=== PATIENT | female | born 1935 | race Caucasian/White ===

== ENCOUNTER 2019-02-20 14:36 | Inpatient (IN) | payer OTHER ==
[~2019-02-20] VITALS: Ht 165.1 cm; Wt 61.9 kg
[2019-02-20 14:37] VITALS: BP 108/64
--- NOTE | 2019-02-20 14:43 | NUR ---
NURSE VILLA FROM [facility] CONTACTED AND REPORTS WILL SEND MED LIST VIA FAX
[2019-02-20 15:21] LABS: URINE BLOOD NEGATIVE (Negative); URINE CLARITY CLEAR; URINE COLOR YELLOW; URINE GLUCOSE-RANDOM* NEGATIVE (Negative); URINE KETONES 1+ (Negative); URINE LEUKOCYTES-REFLEX NEGATIVE (Negative); URINE NITRITE-REFLEX NEGATIVE (Negative); URINE PROTEIN (DIPSTICK) TRACE (Negative); URINE SPECIFIC GRAVITY 1.025 (1.005-1.035)
[2019-02-20 15:24] LABS: ICTOTEST (BILI CONFIRMATORY) Negative (Negative); URINE BILIRUBIN NEGATIVE (Negative)
[2019-02-20 15:28] LABS: HEMATOCRIT 40.3 % (37.0-47.0)
[2019-02-20 15:30] LABS: HEMOGLOBIN 13.5 gm/dL (12.0-15.0); LYMPHOCYTES 43.9 % (24.0-44.0); MCH 31.8 pg (26.0-34.0); MCHC 33.4 g/dL (28.0-37.0); MCV 95.2 fL (80.0-100.0); POLYS 44.1 % (36.0-66.0); RBC 4.24 mil/uL (4.20-5.00); RDW 14.1 % (10.5-14.5); WBC 3.6 thou/uL (4.0-11.0)
[2019-02-20 15:38] LABS: CALCIUM 9.2 mg/dL (8.5-10.1); POTASSIUM 3.4 mmol/L (3.5-5.1)
[2019-02-20 15:44] LABS: ALBUMIN 3.3 g/dL (3.4-5.0); TOTAL BILIRUBIN 0.6 mg/dL (<0.1-1.0); TOTAL PROTEIN 6.4 g/dL (6.4-8.2)
[2019-02-20 15:52] LABS: PLATELET COUNT 48 thou/uL (150-400); PLATELET ESTIMATE DECREASED
[2019-02-20 16:57] VITALS: BP 121/69
[2019-02-20 16:59] VITALS: BP 121/69
--- NOTE | 2019-02-20 17:02 | NUR ---
ARRIVES TO FLOOR VIA CART FROM ER AN 81 YEAR OLD FEMALE FROM [facility]-PT REPORTED BY SENIOR LIVING STAFF TO BE PHYSICALLY AGGRESSIVE STRIKING FAMILY AND STAFF MEMBERS ATTEMPTING TO HELP HER-IS ALSO REPORTED TO BE DELUSIONAL/PARANOID WITH RECENT STATEMENTS ABOUT PEOPLE BEING OUT TO GET HER AND AGAINST HER RECENTLY. REPORTED BY ER STAFF TO HAVE BEEN EXTREMLY COMBATIVE THROUGHOUT AMBULANCE DRIVE ON WAY IN AND DURING ER STAY-BITTING,KICKING AND HITTING ER STAFF-RECEIVED IM GEODON X 2 IN ER PRIOR TO ARRIVAL TO UNIT. IS NOTED TO BE SOMULENT-UNABLE TO ANSWER QUESTIONS DURING ADMIT INTERVIEW-FEEBLY STRUCK OUT WITH ATTEMPTS TO GET ADMIT VS-NO SKIN BREAKDOWN NOTED-WEARING BRIEF WHICH IS DRY. THIS RN CONTACTED SON JOSEPH WHO IS DPOA AND CONSENTS OBTAINED. VS 121/69 P-70 02 SAT 98 PERCENT TEMP 97.7
--- NOTE | 2019-02-20 23:13 | NUR ---
1909-Report received from day shift nurse and care assumed. She tried to hit staff taking her VS due to fear, but was consoled and compliant. VSS. She talked with yuni jimenez when talked with margarita, and became less scared with time. She was taken her medications scheduled and talked with, she did say No, several times, shaking her head slightly and pulling away. She was asked about if she was sleepy still and wanted to go back to sleep and she said Yes. She was comforted and covered up with sheets/blankets and has went to sleep and has continued sleeping with bed alarm activated.
--- NOTE | 2019-02-21 05:59 | NUR ---
The pt. set off the alarm in the middle of the night and needed to go to the bathroom. This morning she was taken to the toilet again and she grabbed and kicked staff helping her and talking in a word salad. She was talked with and oriented to the situation but she still wanted to hit hard staff helping her, talking with word mixes non-understandable mostly but also understood some words such as "don't hurt me" and yelling "I'm going to tell my Daddy". Then later "I'm going to tell your Daddy". She was reoriented to the situation, and she wanted to return to sleep/rest in her bed at this time. She continues on fall precautions with bed alarm and other measures.
[2019-02-21 09:16] VITALS: BP 150/89
--- NOTE | 2019-02-21 18:23 | NUR ---
CONFUSED. MUMBLEY SPEECH AND WORD SALAD. SLOW STEADY GAIT. POOR APPETITE. HAS NOT SHOWN AGGRESSIVE BEHAVIOR TODAY. TOOK MEDICATIONS CRUSHED IN ICE CREAM.
[2019-02-21 19:36] VITALS: BP 100/80
--- NOTE | 2019-02-21 21:19 | NUR ---
ASSUMED CARE OF THE PT AT 191 PM. ALERT ET ORIENTED X 1-2. THE PT REMAINS CONFUSED AT TIMES. SHE TOOK HER HS MEDICATION AFTER SHE WENT TO BED. HEART RATE REGULAR. LUNGS CLEAR BILATERALLY, RESP., EVEN, AND UNLABORED. +BS HEARD IN ALL 4 QUADRANTS. ABD SOFT ET NONTENDOR. UNABLE TO SEE IF SHE IS HAVING ANXIETY OR DEPRESSION. REMAINS ON 12 MINUTE CHECKS.
[2019-02-22 09:37] VITALS: BP 109/63
--- NOTE | 2019-02-22 09:48 | NUR ---
[id number]: Report rec from noc shift, care assumed. Assisted by staff x3 to dress and ambulate to DR, uses walker reluctantly, resistant to staff assist, attempts to slap and pinch staff, pt has to be firmly re-directed repeatedly to stay on task (ambulating, focus of task). Sitting at DR table, feeds self a.m. meal, appetite fair, resistant to taking po meds. Attended 0900 therapy group, no participation noted. Call rec from family, update given. 1030: Ambulating in DR, refuses to use walker, close observation and q 12 min checks continue.
[2019-02-22 19:30] VITALS: BP 127/76
[2019-02-22 20:08] LABS: HEMATOCRIT 37.6 % (37.0-47.0); HEMOGLOBIN 12.8 gm/dL (12.0-15.0); MCH 32.4 pg (26.0-34.0); MCHC 34.1 g/dL (28.0-37.0); MCV 95.1 fL (80.0-100.0); RBC 3.96 mil/uL (4.20-5.00); RDW 13.9 % (10.5-14.5); WBC 4.5 thou/uL (4.0-11.0)
[2019-02-22 20:14] LABS: CALCIUM 9.4 mg/dL (8.5-10.1); CREATININE 1.2 mg/dL (0.6-1.0); POTASSIUM 3.4 mmol/L (3.5-5.1)
--- NOTE | 2019-02-22 22:34 | NUR ---
ASSUMED CARE OF THE PT AT 191 PM. ALERT ET ORIENTED X 2. WALKS WITH A STEADY GAIT. REFUSES TO USE A WALKER, SHE MOVES IT IN THE WRONG DIRECTION. THE PT WAS PUT TO BED, SHE STAYED FOR A FEW MINUTES, THEN SHE GOT UP AGAIN, THE PT TOOK HER MEDICATION CRUSHED IN APPLESAUCE. THE PT IS NOW LYING ON ONE OF THE COUCHES IN THE DAYROOM SLEEPING. HEART RATE REGULAR, LUNGS CLEAR BILATERALLY, RESP., EVEN, AND UNLABORED. +BS HEARD IN ALL 4 QUADRANTS. ABD SLIGHTLY OBESE. REMAINS ON 12 MINUTE CHECKS FOR THE PT'S SAFETY.
--- NOTE | 2019-02-23 01:29 | NUR ---
THE PT WAS ATTEMPTING TO ELOPE, BY YANKING AT ALL OF THE DOORS, ATTEMPTING TO GO INTO OTHER PT'S ROOMS. THIS LINUX DEVELOPER CALLED THE PHYSICIAN DESULFURIZER HAND WHO ORDERED FOR THE PT TO RECEIVE ATIVAN 1 MG IM X 1, WHICH WAS GIVEN ORDERED. THE PT IS NOW SITTING IN THE DAYROOM AT THIS TIME WITH STAFF KEEPING AN EYE ON HER, REMAINS ON 12 MINUTE CHECKS FOR THE PT'S SAFETY.
--- NOTE | 2019-02-23 05:22 | NUR ---
ASSISTED THE PT BACK TO BED ABOUT 4 PM., THE PT WENT TO SLEEP ALMOST AT THE SAME TIME. REMAINS ON 12 MINUTE CHECKS FOR HER SAFETY.
[2019-02-23 09:38] VITALS: BP 116/86
--- NOTE | 2019-02-23 13:58 | NUR ---
0715: Report rec from [facility] shift, care assumed. [id number]: To via w/c, lethargic, sluggish to arouse to verbal and tactile stimuli, skin w/d, color natural pale. Staff feeds pt, appetite poor due to lethargy, a.m. med given, pt spit med out, natural tears eye gtts given. No participation in 0900 therapy group session. 1130: Less lethargic for noon meal, fed by staff, appetite fair.
[2019-02-23 19:57] VITALS: BP 125/59
--- NOTE | 2019-02-24 00:22 | NUR ---
PATIENT SITTING AT A TABLE IN DINING ROOM WHEN I CAME ON FLOOR TONITE AT 1900. SHE APPEARED GROGGY FROM SEDATION AND COULD NOT EVEN TALK VERY LOUD. SHE HAD ATIVAN 1MG IM EARLY AM YESTERDAY. PATIENT TOOK HER MEDS CRUSHED IN ICECREAM AND WAS IN BED BY 2100. SHE DENIES PAIN. SHE IS A/0 X1. COMPLIANT. NO BEHAVIORS TONITE. BED IN LOW POSITION AND BED ALARM ON. ROUTINE ROUNDS BEING DONE TO MONITOR HER STATUS.
[2019-02-24 02:09] VITALS: BP 125/59
[2019-02-24 15:18] VITALS: BP 125/59
--- NOTE | 2019-02-24 15:30 | NUR ---
ASSUMED CARE AT 0700 THIS MORNING. PT. ON THE UNIT, SITTING IN A CHAIR READY FOR BREAKFAST. HER 0900 MEDICATIONS WERE CRUSHED AND PLACED IN ICE CREAM. PT. RELUNCTANT TO TAKE THE ICE CREAM BUT FINALLY DID. ATTENDED MORNING MEETING BUT NO PARTICIPATION NOTED. ATE ON THE UNIT. NO S/S SI/HI OR AVH NOTED. SHE REMAINS COMBATIVE WHEN STAFF ATTEMPTS TO AMBULATE HER AND WORK WITH HER.
[2019-02-24 20:46] VITALS: BP 89/62
--- NOTE | 2019-02-25 02:25 | NUR ---
1909-Report received from day shift nurse and care assumed. Lisa was sitting in the day room around others, in a wheelchair. She moved the chair around at times slowly. She talked in word salad when assessed, using several words trying to communicate. No words voiced made any sense though. Meds. were crushed and put in ice cream which is her preference, she was compliant but notably distasteful somewhat per her facial expression but water was given and just ice cream. She rambled words the entire time assessing her and was not hostile or aggressive. . She was not aggressive with ADL's per other staff as well, when she was placed to bed for the night. No c.o. pain voiced.
[2019-02-25 05:27] LABS: HEMATOCRIT 37.3 % (37.0-47.0); HEMOGLOBIN 12.6 gm/dL (12.0-15.0); MCHC 33.7 g/dL (28.0-37.0); PLATELET COUNT 148 thou/uL (150-400); RBC 3.93 mil/uL (4.20-5.00); RDW 14.2 % (10.5-14.5)
[2019-02-25 05:47] LABS: CALCIUM 8.9 mg/dL (8.5-10.1); POTASSIUM 4.2 mmol/L (3.5-5.1)
[2019-02-25 08:56] VITALS: BP 117/73
[2019-02-25 09:01] LABS: ABSOLUTE NEUTROPHILS 2.1 thou/uL (1.4-8.2); PLATELET ESTIMATE NORMAL
[2019-02-25 11:17] VITALS: BP 117/73
--- NOTE | 2019-02-25 12:21 | NUR ---
ASSUMED CARE AT 0700 THIS MORNING. PT. AWAKE, ALERT AND ON THE UNIT IN A W/C. SHE IS LESS COMBATIVE TODAY THAN YESTERDAY. WHEN MORNING MEDICATIONS WERE GIVEN TO HER SHE ATE THEM, ALTHOUGHT SHE NOTED THE APPLESAUCE DID NOT TASTE LIKE IT SHOULD. MEDS WERE CRUSHED AND PUT IN APPLESAUCE. SHE IS MORE LUCID IN HER TALKING TODAY. SHE IS NOTED TO BE SMILING SOME TODAY. FAMILY HERE AT 1100 FOR FAMILY MEETING. THEY WERE PLEASED ON HER LUCID VERBALIZATIONS AND HER SMILING. THEY MET WITH DR. NEGRON TO DISCUSS PT.'S CARE AND/OR PLACEMENT. FAMILY STATED THAT THE DETENTION WOULD GIVE UP ON HER TRYING TO TAKE HER MEDICATION IF SHE REFUSED THEM. THEY WOULD NOT CRUSH THEM OR PUT THEM IN APPLESAUCE. "THEY JUST GAVE UP TRYING TO GIVE THE MEDS TO HER". SHE WAS ON THE UNIT FOR GROUP THIS MORNING. NO SI/HI NOTED AND NOT AVH VOICED OR NOTED. HAS NOT BEEN STRIKING OUT AT STAFF THIS MORNING.
[2019-02-25 19:52] VITALS: BP 101/79
--- NOTE | 2019-02-26 04:42 | NUR ---
ASSUMED CARE OF PATIENT AT APPROXIMATELY 1915 ON 02/25/19. THROUGHOUT THE EVENING SHE REMAINED IN BED AND ISOLATED HERSELF TO HER ROOM. SHE WAS MEDICATION COMPLIANT WITH MEDS WITH ICE CREAM. SHE MINIMALLY VERBALIZED WITH THIS NURSE UPON ASSESSMENT. SHE IS COOPERATIVE, BUT GUARDED. WILL CONTINUE TO MONITOR. VSS, NO S/S OF MEDICAL DISTRESS. NURSING WILL MAINTAIN ALL PRECAUTIONS TO ENSURE SAFETY AT ALL TIMES.
[2019-02-26 07:45] VITALS: BP 88/53
--- NOTE | 2019-02-26 07:45 | NUR ---
AIDS WAS GETTING PT UP AND SHE WAS HITTING STAFF WITH AM CARES AND GETTING INTO W/C. PT OUT TO DINNING ROOM AND PUSHING TABLE. PT DIDN'T ANSWER ON WHERE IS SHE, BIRTHDAY, OR PRESENT MONTH. PT STATED THAT THIS NURSE IS A CUTTER. PT FIGITING WITH VINCEN[facility] ROA.
[2019-02-26 09:26] VITALS: BP 88/53
[2019-02-26 10:15] VITALS: BP 89/56
--- NOTE | 2019-02-26 14:25 | NUR ---
PT SEEMS CALMER AFTER GETTING UP IN AM. PT TAKES MEDS CRUSHED WITHOUT ISSUES.
--- NOTE | 2019-02-26 17:52 | NUR ---
HELPED PT WITH DINNER. PT ATE 100% OF SHERBERT. PT TALKING WITH NURSE, NOT MAKING COMPLETE SENTANCES. PT SMILING WITH NURSE.
[2019-02-26 19:34] VITALS: BP 104/70
--- NOTE | 2019-02-26 22:22 | NUR ---
ASSUMED CARE OF THE PT AT 191 PM. ALERT ET ORIENTED X 2. MAKES HER NEEDS KNOWN. HEART RATE REGULAR, LUNGS CLEAR BILATERALLY, RESP., EVEN, AND UNLABORED. +BS HEARD IN ALL 4 QUADRANTS. THE PT IS SLIGHTLY OBESE. THE PT DENIES ANXIETY, DEPRESSION. DENIES SI/HI. DENIES RACING THOUGHTS AND NIGHTMARES. THE PT GET UP AND ABOUT THE UNIT IN A WHEELCHAIR. REMAINS ON 12 MINUTE CHECKS FOR HER SAFETY.
--- NOTE | 2019-02-27 04:04 | NUR ---
THE PT APPEARS TO BE SLEEPING QUIETLY IN BED AT THIS TIME. RESP., EVEN, AND UNLABORED. REMAINS ON 12 MINUTE CHECKS FOR HER SAFETY.
--- NOTE | 2019-02-27 05:54 | NUR ---
THE PT SLEPT 8.9 HOURS LAST NIGHT.
--- NOTE | 2019-02-27 06:37 | NUR ---
THE PT REFUSED TO GET UP THIS AM X 2. YELLING AT THIS GAME AND FISH PROTECTOR, "GET THE HELL AWAY FROM ME!!" REPOSITIIONED THE PT AND THEN SHE WENT BACK TO BED.
--- NOTE | 2019-02-27 11:24 | NUR ---
ASSUMED CARE OF PATIENT THIS AM. PATIENT IN BED SOMEWHAT IRRITABLE THIS MORNING DURING ASSESSMENT. BREATH SOUNDS CLEAR AND DIMINISHED IN THE BASES, BREATHING UNLABORED AND REGULAR WITHIN NORMAL LIMITS. PATIENT RECIEVED MORNING MEDICATIONS IN APPLESAUCE. EYEDROPS WERE PUT IN EACH EYE. PATIENTS SPEECH WAS GARBLED AND OFF TOPIC.
--- NOTE | 2019-02-27 15:01 | NUR ---
P.T. REQUISTION OBTAINED TO ASSESS PT DECLINE IN FUNCTIONAL MOBILITY. DESPITE MULTIPLE APPROACHES, PT UNWILLING TO ANSWER THERAPIST QUESTIONS OR FOLLOW ANY SIMPLE COMMANDS DURING ATTEMPT TO PERFORM P.T. EVALUATION. PT EXTREMELY RESISTIVE TO THERAPIST OFFER TO ASSIST AND UNFORTUNATELY DUE TO COGNITIVE STATUS IS NOT DEEMED TO BE AN APPROPRIATE CANDIDATE FOR P.T. WHILE ON THE [facility] UNIT.
--- NOTE | 2019-02-27 15:16 | NUR ---
Date of Admission: 02/20/19 Date of Activity Therapy Assessment: 02/23/19 Activity Goal: Structure and reality orientation Initial Goal: 1 Group activity/day Weekly progress towards goal: Did not achieve goals Group participation level: Minimal Behaviors observed: Patient is often sleeping in her wheelchair during scheduled group times. At times patient is able to focus on conversation one to one but it consists of disorienting content. Patient has not shown aggression in groups/one to one interactions. Plan: No change towards goal
[2019-02-27 19:19] VITALS: BP 111/58
--- NOTE | 2019-02-28 04:22 | NUR ---
The pt. was irritable when assessing. She talked with some understandable words, but mostly word salad. With encouragement she was medication compliant with her HS meds. crushed and put in ice cream. She slept well thru the nite and had fall precaution measures in place.
[2019-02-28 09:31] VITALS: BP 151/71
--- NOTE | 2019-02-28 14:15 | NUR ---
ALONSO called and spoke with pt's son Timoteo [phone], and gave him an update. This included plans to d/c early next week. He is satisfied with the changes and care his mom is getting. ALONSO will send updates on Saturday, and left a VM for admissions at [facility] [phone] to report about the d/c plans
--- NOTE | 2019-02-28 15:15 | NUR ---
SIMÓN called and spoke with admission coord [phone] at [facility] [phone] to report that d/c would likely be Saturday or Saturday, they will be sending someone to eval this pt on Saturday. Will send updates on Saturday PM [phone]. Simón also spoek with son Timoteo and he is satisfid with his momther's care.
--- NOTE | 2019-02-28 16:16 | NUR ---
PATIENT ORIENTED TO SELF AND OFTEN IS FOUND SITTING IN CHAIR WITH EYES CLOSED AND WILL ATTEMPT TO SLEEP IN BED IF ALLOWED. PATIENT UNABLE TO PARTICIPATE IN GROUP DUE TO CONFUSION. WHEN PATIENT SPEAKS, HER WORDS ARE UNINTELLIGIBLE. PATIENT WILL TAKE MEDS CRUSHED IN APPLE SAUCE, YOGURT OR PUDDING. IF PILLS ARE WHOLE, SHE SPITS THEM OUT. PATIENT BECOMES IRRITATED AND ATTEMPTS TO HIT STAFF WHEN GETTIG HER UP FROM BED TO WHEELCHAIR. PATIENT SLEPT THROUGH LUNCH. WHEN SHE GOT UP PATIENT DRANK ENSURE AND ATE APPLESAUCE. PATIENT NEEDS COAXING AND ASSISTANCE TO EAT AND DRINK. PATIENT SLEPT 8.6 HOURS.
[2019-02-28 20:45] VITALS: BP 115/95
--- NOTE | 2019-03-01 05:30 | NUR ---
ASSUMED CARE AT APPROXIMATELY 1915, 02/28/19. PATIENT HAD MINIMAL INTERACTIONS WITH THIS NURSE WELL OTHER PATIENTS. SHE APPEARS WITH A DISHEVELED APPEARANCE AND A FLAT BLUNTED AFFECT. SHE SAT OUTSIDE OF THE PERIMETER OF THE MILIEU AND WAS DIFFICULT TO ASSESS VERBALLY. SHE DID NOT APPEAR TO BE IN DISTRESS AT TIME OF ASSESSMENT. SHE WOULD ONLY GIVE ONE WORD RESPONSES WHEN ASKED. NURSING WILL MAINTAIN ALL PRECAUTIONS TO ENSURE SAFETY AT ALL TIMES.
[2019-03-01 08:00] VITALS: BP 89/43
--- NOTE | 2019-03-01 19:03 | NUR ---
Becomes very combative when changing pt. Otherwise, she sits calmly in dining room in . Alert, confused speech. Orientated to self. Unable to assess SI/HI d/t confusion. Breath sounds clear t/o bilaterally equal. Color pink with brisk capillary refill and palpable peripheral pulses. Regular HR ausculated. Active bowel sounds over soft, rounded abdomen. 1700 Getting pt. up in wheelchair. Hitting, kicking and pinching. Once care complete, she settled down and was cooperative. 1830 Sitting at table without s/o distress.
[2019-03-01 20:07] VITALS: BP 107/65
--- NOTE | 2019-03-01 22:04 | NUR ---
ASSUMED CARE OF THE PT AT 191 PM. ALERT ET ORIENTED X 1-2. THE PT WAS SITTING IN THE WHEELCHAIR WHEN THIS SOUND RANGING CREWMEMBER CAME ON DUTY. SITTING CALMLY TALKING TO HERSELF AND OTHER PTS THAT WHERE SITTING BESIDE HER. WHEN GETTING HER TO BED IT TAKES THREE PEOPLE, SHE SCRATCHED, TRIED TO HIT STAFF. SHE TOOK HER HS MEDICATIONS WITHOUT ANY DIFFICULTY, CRUSHED IN APPLESAUCE. REMAINS ON 12 MINUTE CHECKS FOR THE PT'S SAFETY.
--- NOTE | 2019-03-02 03:42 | NUR ---
THE PT APPEARS TO BE SLEEPING QUIETLY IN BED THIS SHIFT.
[2019-03-02 07:45] VITALS: BP 104/82
--- NOTE | 2019-03-02 07:48 | NUR ---
NURSE TENNILLE APPROACHED NURSE STATION INDICATING, PATIENT FELL IN ROOM AND NEEDED ASSISTANCE. COMPLETED VERGE REPORT, POST FALL HUDDLE FORM, NOTIFIED ALL STAFF REQUIRED PER FALL PROTOCOL, COMPLETED ALL NECESSARY VITALS, NO INJURY NOTIED AND NO NEW ORDERS.
[2019-03-02 07:55] VITALS: BP 104/82
[2019-03-02 08:00] VITALS: BP 133/77
--- NOTE | 2019-03-02 11:02 | NUR ---
VERGE ID FOR FALL IS [id number]
--- NOTE | 2019-03-02 15:41 | NUR ---
PATIENT ORIENTED TO SELF AND HAS DIFFICULTY COMMUNICATING HER NEEDS AND NEEDS HER MEDS CRUSHED IN YOGURT, APPLESAUCE OR PUDDING OR SHE WILL SPIT THEM OUT. POSSIBLE DC TO [facility] SOON. PATIENT LEAGALLY BLIND AND NEEDS EXPLAINATION OF CARES OR SHE POTENTIALLY BECOMES AGITATED. PATIENT SLEPT 7.8 HOURS. PATIENT HAS DIFFICULTY FOLLOWING 1 STEP COMMANDS SUCH OPENING HER EYES FOR EYEDROPS.
--- NOTE | 2019-03-02 17:39 | NUR ---
Pt was seen by Raj falcon today, and they are going to revisit her d/c plans on Saturday. ALONSO advised on a follow up phone call that pt would be ready to d/c on Saturday/ Saturday.
[2019-03-02 19:42] VITALS: BP 136/85
--- NOTE | 2019-03-02 22:23 | NUR ---
ASSUMED CARE OF THE PT AT 191 PM. ALERT ET CONFUSED AT TIMES. THE PT WAS UP SITTING IN THE DINING ROOM WHEN THIS OUTSIDE SALES ADVERTISING EXECUTIVE FIRST CAME ON DUTY. SHE APPEARS SLEEPY, SHE TOOK HER HS MEDICATIONS CRUSHED IN YOGURT, SHE TOOK ALL OF IT WITHOUT ANY DIFFICULTY. WHEN PUTTING THE PT TO BED, SHE YELLED AT STAFF, KICKED AND SCRATCHED AT STAFF. SHE VOIDED IN THE DINING ROOM PRIOR TO GOING TO BED. REMAINS ON 12 MINUTE CHECKS FOR HER SAFETY.
--- NOTE | 2019-03-03 02:46 | NUR ---
THE PT APPEARS TO HAVE BEEN SLEEPING MOST OF THE NIGHT. RESP., EVEN, AND UNLABORED. REMAINS ON 12 MINUTE CHECKS FOR HER SAFETY.
[2019-03-03 05:42] LABS: HEMATOCRIT 35.6 % (37.0-47.0); MCH 32.1 pg (26.0-34.0); MCHC 33.8 g/dL (28.0-37.0); MCV 95.2 fL (80.0-100.0); PLATELET COUNT 139 thou/uL (150-400); RBC 3.74 mil/uL (4.20-5.00); RDW 13.9 % (10.5-14.5); WBC 4.8 thou/uL (4.0-11.0)
[2019-03-03 05:48] LABS: ALBUMIN 2.9 g/dL (3.4-5.0); CALCIUM 8.5 mg/dL (8.5-10.1); CREATININE 0.9 mg/dL (0.6-1.0); MAGNESIUM 1.9 mg/dL (1.8-2.4); PHOSPHORUS 4.1 mg/dL (2.5-4.9); POTASSIUM 3.7 mmol/L (3.5-5.1); TOTAL BILIRUBIN 0.4 mg/dL (<0.1-1.0); TOTAL PROTEIN 5.7 g/dL (6.4-8.2)
--- NOTE | 2019-03-03 06:49 | NUR ---
BLADDER SCANNED THE PT AND IT SHOWED 0cc OF URINE IN HER BLADDER. WILL CONTINUE TO MONITOR.
--- NOTE | 2019-03-03 07:54 | EKG ---
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 03/03/19 0754 [id number] Ed Sanchez MD, [facility] /EPI
[2019-03-03 11:04] LABS: ABSOLUTE NEUTROPHILS 2.6 thou/uL (1.4-8.2)
[2019-03-03 11:05] LABS: ANISOCYTOSIS SLIGHT; OVALOCYTES OCCASIONAL; POIKILOCYTOSIS SLIGHT
--- NOTE | 2019-03-03 11:21 | NUR ---
PATIENT ORIENTED TO SELF AND IN WHEELCHAIR FOR TRANSPORTATION. PATIENT SON, JOSEPH, CALLED REQUESTING PATIENT'S PROGRESS AND DISCHARGE TIME. PER CM, PATIENT MAY DISCHARGE TO [facility] ON SATURDAY OR SATURDAY. SON WOULD LIKE TO KNOW ABOUT ANY OUTBURSTS. SON INDICATED TO LET PATIENT KNOW WHAT YOU ARE DOING AND TALK WITH HER TO DECREASE LIKELYHOOD OF NONCOMPLIANCE. PATIENT TAKES MEDS IN YOGURT BUT SPITS OUT WHOLE PILLS.
[2019-03-03 20:15] VITALS: BP 138/72
--- NOTE | 2019-03-04 05:28 | NUR ---
1909-Report received from day shift nurse and care assumed. She was in her bed sleeping at shift start. VS wnl. She was taken her HS medications and she yelled at keno writer some non-understandable words. She was talked with quietly and she shoved her medication cup with medications away, thus refusing.She slept soundly all nite and incontinent care done.
[2019-03-04 11:20] VITALS: BP 114/58
[2019-03-04 12:30] VITALS: BP 114/58
[2019-03-04 12:58] VITALS: BP 114/58
--- NOTE | 2019-03-04 15:03 | NUR ---
0710: Report rec from [facility] shift, care assumed. [id number]: Mobile via w/c, non verbal with assessment. Does not feed self, takes mini size bites when staff attempted to feed, appetite poor, takes meds crushed in applesauce. No participation noted during therapy group due to cognitive impairment. Incontinent, wears briefs, toileting requires assist of 1-2 staff.
--- NOTE | 2019-03-04 16:09 | NUR ---
Simón called a left a VM with [facility] about pending d/c. Also sent a fax with updates
[2019-03-04 20:13] VITALS: BP 134/98
--- NOTE | 2019-03-04 23:12 | NUR ---
PT ASLEEP IN W/C IN DAY ROOM, SLOUCHED FORWARD. LAP BELT ON. PT AWAKENS WHEN TALKED TO. PT COMPLIANT WITH HS MEDS AND SNACKS. PT COMPLIANT WITH ADL CARES, STRONG WHEN ASSISTING WITH TRANSFERS.
[2019-03-05 08:54] VITALS: BP 117/61
[2019-03-05 09:02] VITALS: BP 117/61
--- NOTE | 2019-03-05 12:44 | NUR ---
0700 Report recieved from overnight shift, patient ate breakfast, no particapation in groups. Eye drops are difficult to put in, patient closes eyes tighty. I ask Dr if we could d/c she said no she would change to once daily. Patient calm had visitor today, visit went well. Patient does not engage in activities.
[2019-03-05 21:09] VITALS: BP 122/90
--- NOTE | 2019-03-05 22:57 | NUR ---
PT ASLEEP UPON ARRIVAL TO SHIFT. PT COMPLIANT WITH MEDS AND A FEW BITES OF ICE CREAM. PT DID NOT OPEN EYES WHILE INTERACTING WITH STAFF AND PT REMAINED LAYING IN POSITION IN BED, HOB RAISED.
--- NOTE | 2019-03-06 05:58 | NUR ---
PT COMBATIVE DURING AM LAB AND ADL CARE. SCREAMING YELLING CURSING HITTING PINCHING.
[2019-03-06 08:14] VITALS: BP 178/93
--- NOTE | 2019-03-06 13:54 | NUR ---
Date of Admission: 02/20/19 Date of Activity Therapy Assessment: 02/23/19 Activity Goal: Structure and reality orientation Initial Goal: 1 Group activity/day Weekly progress towards goal: Did not achieve goals Group participation level: Passive Behaviors observed: Patient continues to participate passively only. She is observed to sit with her eyes closed and does not verbalize. No agitation or aggression displayed. Plan: No change towards goal
[2019-03-06 15:04] LABS: URINE BILIRUBIN NEGATIVE (Negative); URINE BLOOD NEGATIVE (Negative); URINE CLARITY CLEAR; URINE COLOR YELLOW; URINE GLUCOSE-RANDOM* NEGATIVE (Negative); URINE KETONES 1+ (Negative); URINE LEUKOCYTES-REFLEX 1+ (Negative); URINE NITRITE-REFLEX POSITIVE (Negative); URINE PROTEIN (DIPSTICK) TRACE (Negative); URINE SPECIFIC GRAVITY 1.025 (1.005-1.035)
[2019-03-06 15:15] LABS: SQUAMOUS 0-3 Few /LPF (0-3)
[2019-03-06 15:16] LABS: BACTERIA-REFLEX >30 Many /HPF (None Seen); CASTS None Seen /LPF (None Seen); CRYSTALS None Seen /LPF (None Seen); URINE RBC 0-2 Rare /HPF (0-2)
--- NOTE | 2019-03-06 15:59 | NUR ---
Simón sent updates to [facility]
--- NOTE | 2019-03-06 18:22 | NUR ---
Sitting at table. Alert, with rambling speech. Responds to name but is not orientated to place, day or situation. Breath sounds clear t/o, bilaterally equal. Color pink with brisk capillary refill. Reg HR auscultated. Active bowel sounds over soft rounded abdomen. No s/o skin breakdown, multiple bruises. 1000 To bathroom to change briefs. Able to ambulate about 5 steps with assistance. Cooperative with little combativeness. Able to catch about 3cc urine in hat, briefs wet. [address] Patricia about incontinence, inablility to get clean catch UA. Straight cath UA ordered for after lunch. Taking meds without difficulty. Taking sips of H2O with encouragement. 1400 Straight cath done with little difficulty. Sent to lab. Back up to w/c and out to dining room. 1600 Dr. Patricia notified of UA results. Also aware of 12 lead EKG. Spoke with Dr. Gold via phone. Ordered Rocephin IM and Cepalexin PO. Will also encourage PO intake 8 oz every 3 hours while awake. 1800 1 gm Rocephin given IM in L vastus lateralis, diluted with lidocaine. Took PO meds with little difficulty. Family here to visit, appropriate questions and concerns.
[2019-03-06 19:40] VITALS: BP 155/90
[2019-03-06 19:42] VITALS: BP 155/90
--- NOTE | 2019-03-06 21:50 | NUR ---
Care assumed of patient at 1915: Patient seated in w/c in day room with other peers at start of shift. Patient alert and oriented to person only. Patient confused and forgetful. Patient has blunted affect. Perplexed appearance, poor eye contact. Patient denies pain or discomfort. Patient remains on po abx tx for the diagnosis of UTI. No s/s of adverse effects noted at this time. Patient incontinent of bladder. Beba care provided. Patient doesn't appear to be experiencing AH/VH, delusional or paranoia thoughts. No agitation or aggression observed this shift. Patient was assisted to bed with staff assist x2 with no difficulties observed. Patient took HS medication crushed without difficulty. Patient has been resting quietly in bed.
[2019-03-07 07:40] VITALS: BP 118/92
[2019-03-07 10:17] VITALS: BP 118/92
--- NOTE | 2019-03-07 10:18 | EKG ---
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: Balwinder GALAN : 1935 Requested By: Rajiv Patricia Order Number: [id number] MD: Benitez Perez Measurements Intervals [place] Rate: 75 P: 85 MN: 47 QRS: 17 QRSD: 119 T: 73 QT: 432 QTc: 483 Interpretive Statements Sinus rhythm Short MN interval Nonspecific intraventricular conduction delay Nonspecific ST segment abnormality Compared to ECG 03/02/2019 11:46:03 Intraventricular conduction delay now present ST (T wave) deviation still present Electronically Signed On 03-07-2019 10:17:57 CDT by Benitez Perez [email or web address] <ELECTRONICALLY SIGNED> By: Benitez Perez MD 03/07/19 1017 [id number] Benitez Perez MD /EPI
--- NOTE | 2019-03-07 12:25 | NUR ---
0700 Report received from overnight shift, patient ate half of breakfast. Patient took medication in oatmeal, patient refused her 1300 eye medication. Patient confused, quiet does not participate in groups. Patient did not display any aggression.
--- NOTE | 2019-03-07 15:29 | NUR ---
1524 Sodium Chloride 500 ml started, Vascular Nurse put IV in and secured with coban. The iV will run about 4 hours, patient in bed resting.
[2019-03-07 19:51] VITALS: BP 97/73
--- NOTE | 2019-03-07 22:46 | NUR ---
ASSUMED CARE OF THE PT AT 191 PM. THE PT WAS LYING IN BED ASLEEP AT THAT TIME, WITH HER IV FLUIDS INFUSING, IV SITE HAS A CLEAN/DRY/INTACT DRESSING AROUND IT WITH KOBAN IN PLACE. AFTER HER IV FLUIDS INFUSED SHE WAS INCONTINENT X 1. SHE TOOK HER HS MEDICATIONS CRUSHED IN PUDDING. AT THIS TIME, SHE APPEARS TO BE RESTING QUIETLY IN BED. REMAINS ON 12 MINUTE CHECKS FOR HER SAFETY.
--- NOTE | 2019-03-08 01:28 | NUR ---
THE PT'S IV FLUIDS WERE DC'D EARLIER IN THE SHIFT, THE 500cc of NORMAL SALINE HAD FINISHED. PAGED DR. NEGRON AND HE ORDERED FOR THE PT'S SALINE AMRIT TO BE LEFT IN OVERNIGHT AND FOR A BMP TO BE DRAWN THIS MORNING.
--- NOTE | 2019-03-08 04:26 | NUR ---
THE PT HAD NOT VOIDED SINCE EARLIER IN THE SHIFT, THIS SOCIOLOGY FACULTY MEMBER BLADDER SCANNED THE PT AND IT SHOWED 382cc. WILL ENCOURAGE THE PT TO VOID. REMAINS ON 12 MINUTE CHECKS FOR HER SAFETY.
--- NOTE | 2019-03-08 05:35 | NUR ---
STRAIGHT CATHED THE PT AND GOT 400cc of dark colored nathaly urine. the pt slept 9.0 hours last night.
[2019-03-08 06:14] LABS: CALCIUM 8.3 mg/dL (8.5-10.1); CREATININE 0.8 mg/dL (0.6-1.0); POTASSIUM 3.3 mmol/L (3.5-5.1)
[2019-03-08 07:40] VITALS: BP 125/84
--- NOTE | 2019-03-08 13:43 | NUR ---
Lying in bed w/o s/o distress. Very little verbalizations. Confused speech when verbal. Unable to assess SI/HI. Pupils equal and briskly reactive. At times obeys simple commands (open mouth). Ate ice cream with meds and took several bites of food/sips of H2O, juice but swished it around her mouth and then spit out. Reg HR with brisk tones. Brisk capillary refill and palpable peripheral pulses. Color pink. Breath sounds clear t/o, bilaterally equal without nasal flaring or retractions. Active bowel sounds over soft, rounded abd. Briefs dry. 400 ml urine reported from straight cath this am at 530. Dr. Patricia here evaluating pt, spoke with family, DNR ordered. 1100 Dr. Gold notified of decreased PO intake, order to pull IV. Plan on infusing 500 ml D5W IV over 4 hours and then pull IV. Up in wheelchair. Slightly more awake. Daughter here visiting, appropriate questions and concerns. 1330 Ate approximately 50% of lunch and 25% of Ensure supplement. Required feeding. 40meq of KCL mixed with ensure and fed with syringe. Approximately 50% spit out. She held med in mouth for several minutes and then let it roll out of her mouth. In bed. IV currently infusing at 125ml/hr. Appears to be sleeping without s/o distress.
[2019-03-08 19:47] VITALS: BP 110/65
--- NOTE | 2019-03-08 22:01 | NUR ---
ASSUMED CARE OF THE PT AT 191 PM. ALERT ET DROWZY THIS P.M., THE PT WAS SITTING IN THE DAYROOM WHEN THIS SENIOR ENERGY MARKET COORDINATOR FIRST CAME ON DUTY. SHE TOOK HER HS MEDICATIONS CRUSHED IN PUDDING, ALONG WITH HER ABT. UNABLE TO ASSESS IF SHE HAS ANY DEPRESSION, ANXIETY, A/V HALLUNICATIONS. REMAINS ON 12 MINUTE CHECKS FOR HER SAFETY.
--- NOTE | 2019-03-09 01:46 | NUR ---
THE PT APPEARS TO BE RESTING QUIETLY IN BED AT THIS TIME. REMAINS ON 12 MINUTE CHECKS FOR HER SAFETY.
--- NOTE | 2019-03-09 05:02 | NUR ---
the pt slept 8 hours last night.
--- NOTE | 2019-03-09 06:34 | NUR ---
while making rounds on the pt around 4 am, the pt was incont. x 1. needed a complete linen change. took her am medication without any difficuly.
[2019-03-09 09:24] VITALS: BP 112/56
[2019-03-09 19:15] VITALS: BP 151/55
--- NOTE | 2019-03-09 20:26 | NUR ---
Lying in bed, appears to sleep. When stimulated she displays confused, garbled speech. Unable to assess verbal responses to SI/HI/pain. Obeys simple commands and becomes combative at times with cares. Color pink with brisk capillary refill. Breath sounds clear t/o. No s/o resp distress. Brief wet. Several areas of redness on buttocks. 2-3 mm area of broken skin (top layer) between buttocks. Eating of meals decreased but does eat ice cream cups with meds. Drank approximately 50% of ensure and 8 oz tea with dinner. Barrier cream applied to buttocks after wound cleaned. Photographed, but unable to find pictures in camera. In bed for several hours in afternoon and back in bed after dinner. Briefs off while in bed. Appears to sleep without s/o distress when not disturbed.
--- NOTE | 2019-03-10 00:44 | NUR ---
Care assumed of patient at 1915: Patient alert and oriented to person. Patient confused and forgetful. Patient resting in bed at start of shift. Patient easily arousable. Patient drowsy, calm, cooperative. Patient took medication crushed without difficulty. Declined further snack after medication administered. No s/s of pain or discomfort. Redness observed to buttock. Barrier cream applied. Turned q2 hours and monitored for incontinence. No aggression or agitation observed at this time. No s/s of AH/VH, delusional or paranoia behaviors.
[2019-03-10 09:01] VITALS: BP 120/81
--- NOTE | 2019-03-10 17:08 | NUR ---
ALONSO recieved a message that pt will be discharging to [facility] at 10 am [facility]. This referral was sent earlier in the day. Reported this to nursing
--- NOTE | 2019-03-10 19:57 | NUR ---
Sitting up in w/c in dining room. Confused speech when she verbalizes. Unable to assess SI/HI. Opening eyes today and obeys simple commands. Cooperative with care. Color pink with brisk capillary refill and palpable peripheral pulses. Reg HR. Breath sounds clear t/o, bilaterally equal. Active bowel sounds over soft, rounded abdomen. Large void per pad and brief. 2mm area of broken skin, top layer on L buttocks, area slightly pink. Improved from yesterday. Barrier cream applied. Allowed to sleep in room until lunch. 1300 Very sedated. Sitting slumped in wc with head tilted forward. Took no lunch despite persistent efforts to feed. Would not even take ice cream. Dr. Patricia notified. DCed scheduled meds. Reapproached and she was able to eat ice cream and drank 8 oz clear Ensure supplement with medicine cup and 3 cc syringe. 1830 Placed in bed after spending afternoon in w/c. Appears comfortable without s/o distress. Not combative. Much less sedated than earlier this morning.
[2019-03-10 21:13] VITALS: BP 126/82
--- NOTE | 2019-03-11 04:27 | NUR ---
1909-Report received from day shift nurse and care assumed. Lisa was in bed resting at shift start. Respirations = 18 and regular, p=83, oxy. 90%, T=36.3. She was awakened when she was repositioned and incontinent care done. She refused to swallow her medications, spitting them out. She rambled words to staff, was not aggressive, hypoactive. She slept sound this nite.
[2019-03-11 08:00] VITALS: BP 154/95
[2019-03-11 08:55] VITALS: BP 154/95
[2019-03-11] MEDS ORDERED: KEFLEX250 MG/5 M PO (09:04)
[2019-03-11] MEDS ORDERED: REMERON15 MG PO (09:05)
[2019-03-11] MEDS ORDERED: DEPAKOTE SPRIN125 MG PO (09:05)
[2019-03-11] MEDS ORDERED: ARTIFICIAL TEA1 EACH OPHTHALMIC (09:06)
[2019-03-11] MEDS ORDERED: COLACE 100 MG100 MG PO (09:06)
--- NOTE | 2019-03-11 09:07 | NUR ---
PT SITTING IN DINNING ROOM. PT TOOK MEDS OK CRUSHED WITH APPLESAUCE. PT DIDN'T REFUSE MEDICATION. PT LUNGS CLEAR. PT NEEDED HELP WITH BREAKFAST. PT LEAVING TODAY TO [facility].
--- NOTE | 2019-03-11 09:45 | NUR ---
PT LEFT VIA W/C TO [facility].
--- NOTE | 2019-03-12 22:29 | D ---
[facility] [place] [address] DISCHARGE SUMMARY Name: SADAF BOX Room #: 521B-B [facility] IN M.R.#: [id number] Admission: 02/20/19 Attend Phys: Rajiv Patricia DO Discharge: 03/11/19 Date of : 31 Report #: [id number] THIS REPORT FOR: //name// CC: Rajiv Harris DATE OF SERVICE: 03/11/2019 PSYCHIATRIC DISCHARGE SUMMARY ATTENDING PHYSICIAN: Rajiv Patricia DO. MACHINE WORKER: Smiley Gold MD DISCHARGE DIAGNOSES: Major neurocognitive disorder, most likely Alzheimer's, possible vascular contribution with behavioral disturbance. The patient's behaviors have much improved. However, the patient is currently evolved hospice status. Medical comorbidities include urinary tract infection, status post treatment for Staphylococcus saprophyticus. The patient was treated with Rocephin and Keflex. DISCHARGE MEDICATIONS: Cephalexin 500 mg p.o. q. 8 hours schedule 11 more doses, Depakote Sprinkles 500 mg p.o. b.i.d. for mood stabilization, mirtazapine 15 mg p.o. at bedtime for sleep and appetite, artificial tear 2 drops ophthalmic 3 times a day, docusate sodium 100 mg p.o. daily for bowel movement. DISCHARGE PLAN: The patient is discharged to the [facility] in [place], [place]. Psychiatric medical and hospice care would be provided at that facility. REASON FOR ADMISSION: Includes brought by EMS for psychiatric evaluation at [facility]. The patient had been increasingly aggressive towards family and some staff, not taking her medications, not eating meals. HOSPITAL COURSE: The patient was admitted to Geriatric Psychiatry Unit. The patient was started on a Depakote regimen and was titrated. Antipsychotics were used during admission; however, the patient became increasingly sedated, so they were discontinued. 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 The patient was not self-injurious. She was verbal, but not making sense. LABORATORY DATA: Significant laboratories this admission, most recently on 03/03/2019. CBC was done, which was grossly normal except for platelet count [facility] [address] [place] [address] DISCHARGE SUMMARY Name: SADAF BOX Room #: 521B-B [facility] IN [facility]#: [id number] Admission: 02/20/19 Attend Phys: Rajiv Patricia DO Discharge: 03/11/19 Date of : 31 Report #: [id number] 139. Chemistries: Sodium 141, potassium 3.3, chloride 108, bicarbonate 31, anion gap 6, BUN 17, creatinine 0.8, estimated GFR 68, glucose 78, calcium 8.3, ammonia was less than 10. Abnormal urine was detected on 03/06/2019. PHYSICAL EXAMINATION: VITAL SIGNS AT TIME OF DISCHARGE: Temperature 36.4, pulse 67, respirations 15, BP 154/95, O2 sat 99%. MUSCULOSKELETAL: Wheelchair bound. MENTAL STATUS EXAMINATION: This is a well-developed, ill-appearing, disheveled female appearing nearly stated age. Attention impaired. Concentration impaired. Speech variably intelligible disorganized. Thought process nonlinear. Thought content was not making sense as stated above. No psychomotor retardation with psychomotor agitation. The patient did not appear to be self-harming, would not answer questions, specifically. Memory impaired, insight impaired, judgment impaired. Fund of knowledge well below average. Prognosis for the patient is poor given her age, advancement of disease and need for hospice status. Expected life expectancy would be less than 6 months at this point. <ELECTRONICALLY SIGNED> By: Rajiv Patricia DO 03/12/19 [id number] Rajiv Patricia DO /nt
== END 2019-03-11 10:13 | DRG 57 ==
LOC: ER 14:36 → EDBD 16:13 → SBH 16:13 → EROBS 16:13 → SBH 16:14
PROVIDERS: Internal Medicine; Physician Assistant; Psychiatry & Neurology Psychiatry; ADMIT Psychiatry & Neurology Psychiatry
DX: G30.9 Alzheimer's disease, unspecified (principal); F02.81 Dementia in other diseases classified elsewhere, unspecified severity, with behavioral disturbance; N39.0 Urinary tract infection, site not specified; F01.51 Vascular dementia, unspecified severity, with behavioral disturbance; E87.0 Hyperosmolality and hypernatremia; E83.42 Hypomagnesemia; E53.8 Deficiency of other specified B group vitamins; N18.3 Chronic kidney disease, stage 3 (moderate); I12.9 Hypertensive chronic kidney disease with stage 1 through stage 4 chronic kidney disease, or unspecified chronic kidney disease; G47.00 Insomnia, unspecified; H54.8 Legal blindness, as defined in USA; D69.6 Thrombocytopenia, unspecified; E87.6 Hypokalemia; Z91.041 Radiographic dye allergy status; Z88.8 Allergy status to other drugs, medicaments and biological substances
CPT/HCPCS: 10880